=== PATIENT | male | born 1990 | race American Indian/Alaskan Native ===

== ENCOUNTER 2022-02-23 10:46 | Emergency (ER) | payer BC ==
--- NOTE | 2022-02-23 11:03 | Emergency Department Report ---
Stated Complaint: SICKLE CELL - HPI History of Present Illness: Patient presents to ER for sickle cell crisis for the last 48 hours. No nausea no vomiting oxycodone 10mg not helping. Non feverf or chills. No URI symptom. - Exam Physical Exam: Alert and oriented times 3. NAD No labored breathing. VS stable. gait nomal. MSE screening note: Focused history and physical exam performed. Due to findings the following was ordered: cbc retic count. ED Disposition for MSE Condition: Stable
[2022-02-23 16:29] LABS: Hematocrit 27.3 % (35.5-45.6); Hemoglobin 8.9 gm/dl (11.8-15.2); Mean Corpuscular HGB Conc 33 % (32-34); Mean Corpuscular Volume 77 fl (84-94); Platelet Count 487 K/mm3 (140-440); Red Blood Count 3.54 M/mm3 (3.65-5.03)
[2022-02-23 18:05] LABS: Total Cells Counted 100
[2022-02-23 18:06] LABS: Anisocytosis 1+; Hypochromasia 2+
[2022-02-23 18:07] LABS: Burr Cells Few; Poikilocytosis 2+; Sickle Cells 1+; Target Cells 1+
[2022-02-23 18:08] LABS: Platelet Estimate Consistent w Auto
[2022-02-24] MEDS ORDERED: SODIUM CHLORIDE 0.9% 1000 ML 1,000 ML IV ONE (04:45)
[2022-02-24] MEDS ORDERED: MORPHINE 4 MG/1 ML INJ IV ONE (04:45)
--- NOTE | 2022-02-24 05:31 | Emergency Department Report ---
HPI - General Chief Complaint: Sickle Cell Crisis Time Seen by Provider: 02/24/22 04:14 - HPI HPI: 31-year-old male with a history of sickle cell disease, currently followed up by estate planning paralegal at [facility], nonHodgkin's Lymphoma, presents with what he states is a "flare" of his sickle cell disease. He complains of pain to his left forearm x1 month as well as right wrist pain x48 hours. He denies any falls or trauma, no chest pain shortness of breath difficulty breathing or palpitations. Patient reports he has a known clot within his right-sided chest port but states he is on Eliquis and this was diagnosed within "the past 4 months at [place]." He states he is unsure of what is triggering his crisis but may likely be due to stress. He reports he takes Percocet 10 mg tablets by mouth at home as needed for pain, and was written "for something stronger by my doctor but its not working." He states that the aforementioned areas are typica l for his pain crises. Pain currently 8 out of 10. ED Past Medical Hx - Past Medical History Previous Medical History?: Yes Hx Sickle Cell Disease: Yes (SS) Additional medical history: HODGKINS lymphoma - Surgical History Additional Surgical History: port right chest. - Social History Smoking Status: Never Smoker Substance Use Type: None - Medications Home Medications: Home Medications Medication Instructions Recorded Confirmed Last Taken Type Folic Acid [Folvite] 1 mg PO QDAY #30 tablet 05/22/15 08/14/15 08/11/15 Rx oxyCODONE [roxiCODONE] 5 mg PO Q6HR PRN #15 tablet 04/21/16 Unknown Rx ED Review of Systems ROS: Stated complaint: SICKLE CELL Other details as noted in HPI Comment: All other systems reviewed and negative Physical Exam - Physical Exam Vital Signs: Vital Signs 02/23/22 02/24/22 11:00 01:26 Temperature 97.5 F L 98.2 F Pulse Rate 98 H 83 Respiratory 18 18 Rate Blood Pressure 123/79 107/73 O2 Sat by Pulse 97 100 Oximetry General: Gen: pt is well appearing, no acute distress HEENT: Normocephalic atraumatic pupils equally round and reactive to light extraocular muscles intact sclera anicteric Neck: Full range of motion, no midline spinal tenderness palpation, no JVD, no carotid bruits, no nuchal rigidity CVS: S1-S2 regular rate and rhythm with no gallops rubs or murmurs, chest wall nontender Pulmonary: Clear to auscultation bilaterally, no wheezes rales or rhonchi Abdomen: Soft nondistended nontender no guarding or rebound tenderness, no palpable deformities or step-offs, normal active bowel sounds, no hepatosplenomegaly, no pulsatile masses : Deferred Extremities: No cyanosis no clubbing no edema, intact distal peripheral pulses, Integumentary: Skin normal, no petechia no purpura no abscess no lacerations no evidence of trauma no evidence of infection Neuro: Patient is awake alert and oriented to person place time situation, mentating well, cranial nerves II through XII intact, no focal neurodeficits, sensation grossly tact Psych: Calm cooperative, mood affect normal ED Course Vital Signs 02/23/22 02/24/22 11:00 01:26 Temperature 97.5 F L 98.2 F Pulse Rate 98 H 83 Respiratory 18 18 Rate Blood Pressure 123/79 107/73 O2 Sat by Pulse 97 100 Oximetry - Reevaluation(s) Reevaluation #1: 02/24/22 05:31 Per SURENDRA Squires, multiple nurses have tried multiple times to place a peripheral IV in the patient, but they have been unsuccessful given that the patient has poor peripheral veins in which they may place a peripheral intravenous catheter. Patient has been offered alternatively to be given morphine intramuscularly for pain management. ED Medical Decision Making - Lab Data Result diagrams: 02/23/22 11:32 - Medical Decision Making 31-year-old male with history of sickle cell disease, non-Hodgkin's lymphoma, presents for evaluation of pain to his left forearm and right wrist with what he states is an exacerbation of on his underlying sickle cell disease. Vital signs stable. Patient is hemodynamically stable and neurovascular intact. Labs reviewed. Multiple nurses have attempted multiple times to obtain peripheral IV access in this patient but have been unsuccessful. Patient declined to have subsequent attempts made by nursing staff at this point. Patient elected to be given as an alternative intramuscular morphine for management of his pain Overall the patient is well-appearing. He is tolerating p.o. challenge without difficulty or reproduction of worsening of his symptoms. Additionally he denies any cardiopulmonary or neurovascular symptoms. He has no signs or symptoms of a septic arthritis or any other limb threatening joint pathology. No further emergent work-up warranted. Patient stable for discharge to home. Critical care attestation.: If time is entered above; I have spent that time in minutes in the direct care of this critically ill patient, excluding procedure time. ED Disposition Clinical Impression: Sickle cell disease with crisis Disposition: HOME / SELF CARE / HOMELESS Is pt being admited?: No Does the pt Need Aspirin: No Condition: Stable Instructions: Blood Smear Test Additional Instructions: Follow up with your estate planning paralegal as soon as possible for reassessment and further management. This is very important. Observe your symptoms very carefully. Go to the nearest emergency department as soon as possible if you develop severe chest pain, shortness of breath, difficulty breathing, vomiting, any fever of 100.4 Fahrenheit or higher, pain that is not consistent with your regular sickle cell crisis flare, or if any other new worrisome symptoms develop.
[2022-02-24] MEDS ORDERED: MORPHINE 4 MG/1 ML INJ IM ONE (06:00)
[2022-02-24 09:54] VITALS: BP 120/84
== END 2022-02-24 09:53 | disposition home or self-care (01) ==
LOC: ED 10:46
DX: D57.219 Sickle-cell/Hb-C disease with crisis, unspecified (principal)
CPT/HCPCS: 36415; 85007; 85025; 85045; 96372; 96374; 99283; J2270; J7030